=== PATIENT | male | born 1995 | race African-American/Black ===

== ENCOUNTER 2020-03-17 13:32 | Emergency (ER) | payer OTHER ==
[~2020-03-17] VITALS: Ht 180.3 cm; Wt 97.1 kg
[2020-03-17 13:32] VITALS: BP 126/77
[2020-03-17] MEDS ORDERED: ERYTHROMYCIN E3.5 G2 OPHTHALMIC (14:15)
== END 2020-03-17 14:28 | disposition home or self-care (01) ==
LOC: ER 13:32
DX: H10.9 Unspecified conjunctivitis (principal)

== ENCOUNTER 2020-06-03 18:47 | Emergency (ER) | payer OTHER ==
[~2020-06-03] VITALS: Ht 180.3 cm; Wt 96.2 kg
[~2020-06-03 18:47] MED LIST: ERYTHROMYCIN E3.5 G2 OPHTHALMIC
[2020-06-03 19:24] LABS: ABSOLUTE NEUTROPHILS 6.6 thou/uL (1.4-8.2); BASOPHILS 0.6 % (0.0-2.0); EOSINOPHILS 1.2 % (0.0-3.0); HEMATOCRIT 40.2 % (42.0-52.0); HEMOGLOBIN 12.8 gm/dL (14.0-18.0); LYMPHOCYTES 24.7 % (24.0-44.0); MCH 24.5 pg (26.0-34.0); MCHC 31.8 g/dL (28.0-37.0); MCV 77.2 fL (80.0-100.0); MONOCYTES 10.1 % (1.0-8.0); PLATELET COUNT 320 thou/uL (150-400); POLYS 63.4 % (36.0-66.0); RBC 5.21 mil/uL (4.50-6.00); RDW 15.6 % (10.5-14.5); WBC 10.5 thou/uL (4.0-11.0)
[2020-06-03 19:34] LABS: ANION GAP 8 mmol/L (7-16); BUN 14 mg/dL (7-18); CALCIUM 8.9 mg/dL (8.5-10.1); CHLORIDE 103 mmol/L (98-107); CO2 26 mmol/L (21-32); CREATININE 0.9 mg/dL (0.7-1.3); GLUCOSE 92 mg/dL (74-106); POTASSIUM 3.8 mmol/L (3.5-5.1); SODIUM 137 mmol/L (136-145)
[2020-06-03 19:37] LABS: URINE BILIRUBIN NEGATIVE (Negative); URINE BLOOD NEGATIVE (Negative); URINE CLARITY CLEAR; URINE COLOR YELLOW; URINE GLUCOSE-RANDOM* NEGATIVE (Negative); URINE KETONES NEGATIVE (Negative); URINE LEUKOCYTES-REFLEX NEGATIVE (Negative); URINE NITRITE-REFLEX NEGATIVE (Negative); URINE PROTEIN (DIPSTICK) NEGATIVE (Negative); URINE SPECIFIC GRAVITY >= 1.030 (1.005-1.035); URINE UROBILINOGEN 0.2 E.U./dl (0.2-1.0)
[2020-06-03 19:48] LABS: ALBUMIN 4.1 g/dL (3.4-5.0); DIRECT BILIRUBIN < 0.1 mg/dL (<0.1-0.2); LIPASE 152 U/L (73-393); SGOT 21 U/L (15-37); SGPT 33 U/L (16-63); TOTAL BILIRUBIN 0.3 mg/dL (0.2-1.0); TOTAL PROTEIN 8.4 g/dL (6.4-8.2)
[2020-06-03] MEDS ORDERED: ONDANSETRON HCL4 M2 PO (20:54)
[2020-06-03 21:15] VITALS: BP 115/75
== END 2020-06-03 22:18 | disposition home or self-care (01) ==
LOC: ER 18:47
PROVIDERS: Nurse Practitioner
DX: R11.2 Nausea with vomiting, unspecified (principal); R19.7 Diarrhea, unspecified; H02.846 Edema of left eye, unspecified eyelid; Z79.2 Long term (current) use of antibiotics; Z91.041 Radiographic dye allergy status

== ENCOUNTER 2020-12-19 05:10 | Emergency (ER) | payer OTHER ==
[~2020-12-19] VITALS: Ht 180.3 cm; Wt 97.5 kg
[~2020-12-19 05:10] MED LIST changes: +ONDANSETRON HCL4 M2 PO
[2020-12-19 05:19] VITALS: BP 130/88
[2020-12-19] MEDS ORDERED: VITAMIN D3250 MC1 PO (05:24)
[2020-12-19] MEDS ORDERED: NORCO5 PO (06:40)
[2020-12-19] MEDS ORDERED: MOBIC15 MG PO (06:40)
== END 2020-12-19 07:15 | disposition home or self-care (01) ==
LOC: ER 05:10
DX: G56.21 Lesion of ulnar nerve, right upper limb (principal); Z79.899 Other long term (current) drug therapy; Z91.041 Radiographic dye allergy status